=== PATIENT | female | born 1950 | race Caucasian/White ===

== ENCOUNTER 2017-09-05 21:26 | Emergency (ER) | payer BC, OTHER ==
[2017-09-05 21:38] VITALS: BP 142/75; PULSE 89; TEMP 98.3; BMI 24.7
--- NOTE | 2017-09-05 22:18 | PDOC ---
History of Present Illness - General Chief Complaint: Pain Stated Complaint: R FOOT 1ST DIGIT Time Seen by Provider: 09/05/17 21:50 - History of Present Illness Initial Comments: This 67-year-old woman with a history of peripheral vascular disease/ hypertension presents with right great toe injury. Just prior to presentation, the patient had dropped heavy lid of stockpot on the toe while she was walking barefoot in her kitchen. She subsequently had significant amount of pain on ambulation; no skin breakage noted. Patient did not fall or sustain any other injury. Past History - Past Medical History Allergies/Adverse Reactions: Allergies Allergy/AdvReac Type Severity Reaction Status Date / Time codeine Allergy vomiting Unverified 04/03/13 11:20 Penicillins Allergy Unverified 04/03/13 11:20 Home Medications: Ambulatory Orders Aspirin [Aspir 81] 81 mg PO HS 07/03/14 Rosuvastatin Calcium [Crestor] 20 mg PO DAILY tablet 10/19/16 Ramipril [Altace] 2.5 mg PO DAILY 09/05/17 COPD: No Other medical history: PAD - Suicide/Smoking/Psychosocial Hx Smoking History: Unknown if ever smoked Have you smoked in the past 12 months: No Number of Cigarettes Smoked Daily: 0 Information on smoking cessation initiated: No Hx Alcohol Use: No Drug/Substance Use Hx: No Substance Use Type: None Review of Systems - Review of Systems Able to Perform ROS?: Yes Comments:: 12 point review of systems is negative except for what is noted in the history of present illness *Physical Exam - Vital Signs Last Vital Signs Temp Pulse Resp BP Pulse Ox 98.3 F 89 14 142/75 97 09/05/17 21:34 09/05/17 21:34 09/05/17 21:34 09/05/17 21:34 09/05/17 21:34 - Physical Exam Comments: GENERAL: Adult female, alert and oriented 3, in no acute distress HEAD: Normal with no signs of trauma. EYES: PERRLA, EOMI, sclera anicteric, conjunctiva clear. ENT: Ears normal, nares patent, oropharynx clear without exudates. Dry mucous membranes. NECK: Normal range of motion, supple without lymphadenopathy, JVD, or masses. LUNGS: Breath sounds equal, clear to auscultation bilaterally. No wheezes, and no crackles. HEART:Regular rate and rhythm, normal S1 and S2 without murmur, rub or gallop. ABDOMEN:.normal bowel sounds No guarding,tenderness or rebound.No masses No distention. EXTREMITIES: Right lower extremity- right great toe:minimal edema/mild tenderness; no subungual hematoma No deformity/no ecchymosis/no skin breakage Remainder of extremity exam was normal NEUROLOGICAL: Cranial nerves II through XII grossly intact. Normal speech. No focal neurological deficits. MUSCULOSKELETAL: Back non-tender to palpation, no CVA tenderness SKIN: Warm, Dry, normal turgor, no rashes or lesions noted. Progress Note - Progress Note Progress Note: Right great toe x-ray performed: No evidence of fracture or dislocation Clinical presentation most consistent with contusion of the great toe. Ice/ elevation of the area should continue over the next 24 hours. Patient should use footwear with could not support over the next week Patient has been seen by Dr. Eldridge in the past; she should follow-up with him or with [facility] (patient asked for referral information for both orthopedic groups) if she has persistent pain/swelling of the area *DC/Admit/Observation/Transfer Diagnosis at time of Disposition: Contusion of right great toe without damage to nail Qualifiers: Encounter type: initial encounter Qualified Code(s): S90.111A - Contusion of right great toe without damage to nail, initial encounter - Discharge Dispostion Disposition: HOME Condition at time of disposition: Stable - Referrals Referrals: Solomon Pabon MD [Primary Care Provider] - Javier Soto MD [Staff Physician] - - Patient Instructions Printed Discharge Instructions: DI for Contusion Additional Instructions: Elevate/ice to right great toe as much as possible over the next 1-2 days Use footwear with good support for the next week Ibuprofen/acetaminophen/naproxen as needed for pain Follow-up with orthopedist (either Dr. Charles garrido or Dr. Jennifer garrido) if pain persists - Post Discharge Activity
== END 2017-09-05 23:07 | disposition home or self-care (01) ==
LOC: FER 21:26
DX: S90.111A Contusion of right great toe without damage to nail, initial encounter (principal); W22.8XXA Striking against or struck by other objects, initial encounter; Y93.89 Activity, other specified; Y92.9 Unspecified place or not applicable; I10 Essential (primary) hypertension; I73.9 Peripheral vascular disease, unspecified
CPT/HCPCS: 73660-TC; 99282-25

== ENCOUNTER 2018-10-28 08:21 | Day surgery (SDC) | payer BC, OTHER ==
[2018-10-22 15:06] VITALS: BMI 21.6
[2018-10-28 11:03] VITALS: TEMP 98
[2018-10-28 11:10] VITALS: BP 114/73; PULSE 64
--- NOTE | 2018-10-30 16:50 | PATH ---
Surgical Pathology Report Patient Name: SOCORRO BEAR [facility]. Rec. #: [id number] /Age/Gender: 1950 (Age: 68) / F Account: [id number] Location: [facility] Taken: 10/28/2018 Received: 10/28/2018 Reported: 10/30/2018 Physicians: Vasquez Rosales M.D. Specimen(s) Received A: CECAL POLYP B: RECTUM POLYP Clinical History Rule out colon cancer Postoperative diagnosis: Polyps Final Diagnosis A. CECAL POLYP, POLYPECTOMY: TUBULAR ADENOMA. B. RECTAL POLYP, POLYPECTOMY: HYPERPLASTIC POLYP. Electronically Signed Sonny Curtis M.D. Gross Description A. Received in formalin, labeled "cecal polyp" is a billingsley, irregular portion of soft tissue measuring 0.7 cm. in greatest dimension. The specimen is submitted in toto in one cassette. B. Received in formalin, labeled "rectum polyp" are 2 billingsley, irregular portions of soft tissue measuring 0.2 and 0.3 cm. in greatest dimension. The specimens are submitted in toto in one cassette. 10/29/2018 saudi10/29/2018
== END 2018-10-28 11:10 | disposition home or self-care (01) ==
LOC: FASU-ENDO 08:21
PROVIDERS: ATTEND Internal Medicine Gastroenterology
PROC: 0DBP8ZX Excision of Rectum, Via Natural or Artificial Opening Endoscopic, Diagnostic (ICD-10-PCS; 2018-10-28)
PROC: 0DBH8ZX Excision of Cecum, Via Natural or Artificial Opening Endoscopic, Diagnostic (ICD-10-PCS; principal; 2018-10-28 10:13)
DX: Z12.11 Encounter for screening for malignant neoplasm of colon (principal); D12.0 Benign neoplasm of cecum; K63.5 Polyp of colon; K62.1 Rectal polyp
CPT/HCPCS: 88305-TC

== ENCOUNTER 2019-08-05 20:07 | Emergency (ER) | payer BC, OTHER ==
[2019-08-05 20:31] VITALS: BP 184/98; PULSE 76; TEMP 98.3; BMI 20.5
--- NOTE | 2019-08-06 03:23 | PDOC ---
Documentation entered by Marilyn Guerra SCRIBE, acting as scribe for Ana Coffman MD. Ana Coffman MD: This documentation has been prepared by the jeffryibeMari Joy, SCRIBE, under my direction and personally reviewed by me in its entirety. I confirm that the documentation accurately reflects all work, treatment, procedures, and medical decision making performed by me. History of Present Illness - General Chief Complaint: Injury Stated Complaint: HIT HEAD 12 DAYS AGO History Source: Patient Exam Limitations: No Limitations - History of Present Illness Initial Comments: 08/05/19 20:59 The patient is a 69 year old female with significant past medical history of peripheral vascular disease and hypertension who presents to the ED with headache, nausea, and blurry vision today s/p head strike 12 days ago. As per patient around 12 days ago, she was opening a cabinet door at home when she slipped on a plastic container and lost her balance, so she fell backwards and hit the back side of her head onto a wall. She briefly iced her head with frozen veggies and felt okay at that time. Patient states she soon traveled to [place] and back but had a headache for the next few days. Patient states her headache waxes and wanes and is sometimes fairly consistent; she has not taken any medication for the pain since. 2 days ago patient endorses she had associated symptoms of neck pain with limited range of motion, and today she started experiencing nausea and blurry vision (with no other vision changes). Patient endorses she takes aspirin (81 mg) and pravastatin, but has not taken them since her fall. Denies LOC, trauma, and shortness of breath. Denies focal numbness, weakness, or tingling. Denies any other symptoms. Allergies: codeine, penicillins. Social History: Former smoker. Alcohol (wine w/ meal every once in a while). 08/05/19 21:02 Past History - Past Medical History Allergies/Adverse Reactions: Allergies Allergy/AdvReac Type Severity Reaction Status Date / Time codeine Allergy vomiting Verified 08/05/19 20:08 Penicillins Allergy Verified 08/05/19 20:08 Home Medications: Ambulatory Orders Aspirin [Aspir 81] 81 mg PO HS 07/03/14 Pravastatin Sodium [Pravachol] 40 mg PO DAILY 10/22/18 Anemia: No Asthma: No Cancer: No Cardiac Disorders: Yes (MVP) CVA: No COPD: No CHF: No Dementia: No Diabetes: No GI Disorders: No Disorders: No HTN: No Hypercholesterolemia: Yes Liver Disease: No Seizures: No Thyroid Disease: No - Surgical History Abdominal Surgery: No Appendectomy: No Cardiac Surgery: No Cholecystectomy: No Lung Surgery: No Neurologic Surgery: No Orthopedic Surgery: No - Psycho Social/Smoking Cessation Hx Smoking History: Unknown if ever smoked Have you smoked in the past 12 months: No Number of Cigarettes Smoked Daily: 0 Hx Alcohol Use: No Drug/Substance Use Hx: No Substance Use Type: None Review of Systems - Review of Systems Able to Perform ROS?: Yes Comments:: 08/05/19 20:59 CONSTITUTIONAL: Absent: fever, chills, diaphoresis, generalized weakness, malaise, loss of appetite HEENT: +neck pain, +visual changes (blurry vision) Absent: rhinorrhea, nasal congestion, throat pain, throat swelling, difficulty swallowing, mouth swelling, ear pain, eye pain, CARDIOVASCULAR: Absent: chest pain, syncope, palpitations, irregular heart rate, lightheadedness , peripheral edema RESPIRATORY: Absent: cough, shortness of breath, dyspnea with exertion, orthopnea, wheezing, stridor, hemoptysis GASTROINTESTINAL:nausea, Absent: abdominal pain, abdominal distension, vomiting, diarrhea, constipation, melena, hematochezia GENITOURINARY: Absent: dysuria, frequency, urgency, hesitancy, hematuria, flank pain, genital pain MUSCULOSKELETAL: Absent: myalgia, arthralgia, joint swelling SKIN: Absent: rash, itching, pallor HEMATOLOGIC/IMMUNOLOGIC: Absent: easy bleeding, easy bruising, lymphadenopathy, frequent infections ENDOCRINE: Absent: unexplained weight gain, unexplained weight loss, heat intolerance, cold intolerance NEUROLOGIC: +headache, Absent: focal weakness or paresthesias, dizziness, unsteady gait, seizure, mental status changes, bladder or bowel incontinence PSYCHIATRIC: Absent: anxiety, depression, suicidal or homicidal ideation, hallucinations. *Physical Exam - Vital Signs Last Vital Signs Temp Pulse Resp BP Pulse Ox 98.3 F 76 20 184/98 H 95 08/05/19 20:08 08/05/19 20:08 08/05/19 20:08 08/05/19 20:08 08/05/19 20:08 - Physical Exam 08/05/19 22:04 GENERAL: The patient is awake, alert, and fully oriented, in no acute distress. HEAD: +Scalp is absolutely nontender. Normal with no signs of trauma. EYES: Pupils equal, round and reactive to light, extraocular movements intact, sclera anicteric, conjunctiva clear with no pallor. ENT: Ears normal, nares patent, oropharynx clear without exudates. Moist mucous membranes. NECK: +Minimal tenderness to palpation midline to the upper cervical spine (C2- C3 area). +Moderately tender to palpation to bilateral paracervical muscles. Normal range of motion, supple without lymphadenopathy, JVD, or masses. LUNGS: Breath sounds equal, clear to auscultation bilaterally. No wheeze/ crackles. HEART: Regular rate and rhythm, normal S1 and S2 without murmur or rub. ABDOMEN: Soft/nontender/nondistended. BS wnl. No guarding or rebound. No palpable masses. No hepatosplenomegaly. EXTREMITIES: Normal range of motion, no edema. No clubbing or cyanosis. No cords, erythema, or tenderness. NEUROLOGICAL: Cranial nerves II through XII grossly intact. Normal speech, normal gait. PSYCH: Normal mood, normal affect. SKIN: Warm, Dry, normal turgor, no rashes or lesions noted. ED Treatment Course - RADIOLOGY Radiology Studies Ordered: Category Date Time Status HEAD CT WITHOUT CONTRAST [CT] Stat CT Scan 08/05/19 20:39 Completed SPINE-CERVICAL [RAD] Stat Radiology 08/05/19 21:36 Taken Medical Decision Making - Medical Decision Making As noted above, this 69-year-old woman presented 12 days after head injury, during which she hit the back of her head against the wall. There was no loss of consciousness but she had intermittent headache since then. Approximately 24 hours prior to presentation the patient had onset of lightheadedness and vision changes. Exam as noted Noncontrast head CT as well as C-spine plain film performed to evaluate for acute injury. Noncontrast head CT showed no evidence of skull fracture/intracranial or subdural bleed/other acute intracranial abnormalities. Cervical spine x-ray (preliminary interpretation by me) showed straightening of lordotic curve without evidence of fracture or dislocation. Clinical presentation consistent with concussion or postconcussion syndrome and cervical strain. Patient was discharged with instructions to avoid strenuous upper body activity for the next several days. She should but warm compresses on the back of her neck (patient did not want soft foam collar). She also used topical agents such as Arnica gel for muscle aches and she can use this on the sore muscles of her neck. If she has any further severe headache or develops nausea/vomiting, she should return to the ER. Otherwise, she should follow-up with her general medical doctor within the next 5 days. Discharge - Discharge Information Problems reviewed: Yes Clinical Impression/Diagnosis: Cervical strain Qualifiers: Encounter type: initial encounter Qualified Code(s): S16.1XXA - Strain of muscle, fascia and tendon at neck level, initial encounter Closed head injury Qualifiers: Encounter type: initial encounter Qualified Code(s): S09.90XA - Unspecified injury of head, initial encounter Condition: Stable Disposition: HOME - Follow up/Referral - Patient Discharge Instructions Patient Printed Discharge Instructions: DI for Cervical Muscle Strain Additional Instructions: Tylenol or ibuprofen as needed for pain as discussed Local warmth to neck muscles as needed Can use topical anti-inflammatory medications as discussed Return to ER if you have severe headache/vomiting Follow-up with your doctor within the next 5 to 7 days - Post Discharge Activity
== END 2019-08-05 22:21 | disposition home or self-care (01) ==
LOC: FER 20:07
DX: S16.1XXA Strain of muscle, fascia and tendon at neck level, initial encounter (principal); S09.90XA Unspecified injury of head, initial encounter; W18.39XA Other fall on same level, initial encounter; Y93.89 Activity, other specified; Y92.410 Unspecified street and highway as the place of occurrence of the external cause; I73.9 Peripheral vascular disease, unspecified; I10 Essential (primary) hypertension
CPT/HCPCS: 70450-TC; 72050-TC-FY; 99282-25

== ENCOUNTER 2020-06-21 11:12 | Emergency (ER) | payer BC, OTHER | END 2020-06-21 11:31 | disposition home or self-care (01) | LOC: JVIRT 11:12 | DX: Z03.818 Encounter for observation for suspected exposure to other biological agents ruled out (principal) | CPT/HCPCS: C9803; Q3014-GT; U0003 ==

== ENCOUNTER 2020-07-14 12:13 | Emergency (ER) | payer BC, OTHER | END 2020-07-14 12:26 | disposition home or self-care (01) | LOC: JVIRT 12:13 | DX: Z11.59 Encounter for screening for other viral diseases (principal) | CPT/HCPCS: C9803; Q3014-GT; U0003 ==

== ENCOUNTER 2020-10-19 12:19 | Emergency (ER) | payer BC, OTHER | END 2020-10-19 12:45 | disposition home or self-care (01) | LOC: JVIRT 12:19 | DX: Z11.52 Encounter for screening for COVID-19 (principal) | CPT/HCPCS: C9803; G2251-GT; U0003 ==

== ENCOUNTER 2023-12-06 07:31 | Day surgery (SDC) | payer OTHER, BC ==
[2023-11-29 14:47] VITALS: BMI 23.5
[2023-12-06] MEDS ORDERED: PROPOFOL 80 ML ONE (07:40)
[2023-12-06] MEDS ORDERED: LIDOCAINE HCL/PF 2% SDV 5ML VIAL ONE (07:40)
[2023-12-06 09:37] VITALS: RESP 20; TEMP 97.8
[2023-12-06 09:41] VITALS: BP 100/56; PULSE 73
== END 2023-12-06 09:30 | disposition home or self-care (01) ==
LOC: FASU-ENDO 07:31
PROVIDERS: ATTEND Internal Medicine Gastroenterology
PROC: 0DJD8ZZ Inspection of Lower Intestinal Tract, Via Natural or Artificial Opening Endoscopic (ICD-10-PCS; principal; 2023-12-06 08:24)
DX: Z12.11 Encounter for screening for malignant neoplasm of colon (principal); K57.30 Diverticulosis of large intestine without perforation or abscess without bleeding; Z86.010 Personal history of colon polyps